=== PATIENT | male | born 1995 | race Caucasian/White ===

== ENCOUNTER 2017-05-14 07:11 | Emergency (ER) | payer OTHER ==
[2017-05-14] MEDS ORDERED: Ketorolac 60 MG/2 ML SDV IM ONE (07:32)
--- NOTE | 2017-05-14 08:54 | EDM.PDOC ---
ED HPI GENERAL MEDICAL PROBLEM - General Chief Complaint: Fever Stated Complaint: FEVER Time Seen by Provider: 05/14/17 07:20 Source of Information: Reports: Patient History Limitations: Reports: No Limitations - History of Present Illness INITIAL COMMENTS - FREE TEXT/NARRATIVE: 22 y.o.w.m came to the ed because his temp was elevatet to 105.2 this am. Pt took tylenol and motrin. As the patient arrived her in the ed,temp was 98.1 and pt was in his usual state of health. He mild lat neck discomfort, no trauma,. however. BP 126/79 pulse 106 Temp 36.8 RR 18 Pulse ox 99% on RA Onset Date: 05/14/17 Onset Time: 05:00 Duration: Hour(s): Location: Reports: Generalized Quality: Reports: Other (fever 105.2) Severity: Mild Improves with: Reports: Medication Worsens with: Reports: Rest Context: Reports: Sick Contact Treatments [employer]: Reports: Acetaminophen, NSAIDS - Related Data Allergies Allergy/AdvReac Type Severity Reaction Status Date / Time No Known Allergies Allergy Verified 05/14/17 07:25 Home Meds: Home Meds NK [No Known Home Meds] 05/14/17 [History] Past Medical History Cardiovascular History: Reports: Other (See Below) Other Cardiovascular History: History of hospitalization for dehydration and heat exhaustion. Social & Family History - Tobacco Use Smoking Status *Q: Never Smoker ED ROS GENERAL - Review of Systems Review Of Systems: See Below Constitutional: Reports: No Symptoms HEENT: Reports: No Symptoms Respiratory: Reports: No Symptoms Cardiovascular: Reports: No Symptoms Endocrine: Reports: No Symptoms GI/Abdominal: Reports: No Symptoms : Reports: No Symptoms Musculoskeletal: Reports: No Symptoms ED EXAM, GENERAL - Physical Exam Exam: See Below Exam Limited By: No Limitations General Appearance: Alert, WD/WN, No Apparent Distress Eye Exam: Bilateral Eye: Normal Inspection Ears: Normal External Exam Ear Exam: Bilateral Ear: Auricle Normal Nose: Normal Inspection, Normal Mucosa Throat/Mouth: Normal Inspection, Normal Lips, Normal Teeth Head: Atraumatic, Normocephalic Neck: Normal Inspection, Supple, Other (tender r lat neckm FROM, no trauma) Respiratory/Chest: No Respiratory Distress, Lungs Clear, Normal Breath Sounds, No Accessory Muscle Use Cardiovascular: Normal Peripheral Pulses, Regular Rate, Rhythm, No Edema, No JVD Peripheral Pulses: 1+: Brachial (R) GI/Abdominal: Normal Bowel Sounds, Soft, Non-Tender (Male) Exam: Deferred Rectal (Males) Exam: Deferred Back Exam: Normal Inspection, Full Range of Motion Extremities: Normal Inspection, Normal Range of Motion, Non-Tender, No Pedal Edema Neurological: Alert, Oriented, CN II-XII Intact, Normal Cognition, Normal Gait, No Motor/Sensory Deficits Psychiatric: Normal Affect, Normal Mood Skin Exam: Warm, Dry, Intact, Normal Color, No Rash Lymphatic: No Adenopathy Course - Vital Signs Text/Narrative:: 22 y.o.w.m came to the ed because his temp was elevatet to 105.2 this am. Pt took tylenol and motrin. As the patient arrived her in the ed,temp was 98.1 and pt was in his usual state of health. He mild lat neck discomfort, no trauma,. however. BP 126/79 pulse 106 Temp 36.8 RR 18 Pulse ox 99% on RA PE: Well appearing 22 y.o.w.m NAD Impression: Viral syndrome Tx: none in the ed Plan:D/C with instructions Last Recorded V/S: Last Vital Signs Temp 36.6 C 05/14/17 08:55 Pulse 98 05/14/17 08:55 Resp 18 05/14/17 08:55 BP 129/72 05/14/17 07:20 Pulse Ox 100 05/14/17 08:55 - Orders/Labs/Meds Labs: Laboratory Tests 05/14/17 05/14/17 05/14/17 Range/Units 07:44 07:44 08:20 WBC 3.4 L (4.5-12.0) X10-3/uL RBC 4.98 (4.30-5.75) x10(6)uL Hgb 14.7 (11.5-15.5) g/dL Hct 43.3 (30.0-51.3) % MCV 86.9 (80-96) fL MCH 29.4 (27.7-33.6) pg MCHC 33.9 (32.2-35.4) g/dL RDW 12.2 (11.5-15.5) % Plt Count 185 (125-369) X10(3)uL MPV 8.2 (7.4-10.4) fL Add Manual Diff Yes Neutrophils % (Manual) 52 (46-82) % Lymphocytes % (Manual) 30 (13-37) % Monocytes % (Manual) 15 H (4-12) % Eosinophils % (Manual) 3 (0-5) % Sodium 139 (135-145) mmol/L Potassium 3.7 (3.5-5.3) mmol/L Chloride 102 (100-110) mmol/L Carbon Dioxide 29 (21-32) mmol/L BUN 13 (7-18) mg/dL Creatinine 1.1 (0.70-1.30) mg/dL Est Cr Clr Drug Dosing 120.27 mL/min Estimated GFR (MDRD) > 60 (>60) BUN/Creatinine Ratio 11.8 (9-20) Glucose 144 H (80-116) mg/dL Calcium 9.0 (8.6-10.2) mg/dL Urine Color Yellow (YELLOW) Urine Appearance Clear (CLEAR) Urine pH 6.0 (5.0-6.5) Ur Specific [place] 1.020 (1.010-1.025) Urine Protein Negative (NEGATIVE) mg/dL Urine Glucose (UA) Normal (NEGATIVE) mg/dL Urine Ketones Negative (NEGATIVE) mg/dL Urine Occult Blood Negative (NEGATIVE) Urine Nitrite Negative (NEGATIVE) Urine Bilirubin Negative (NEGATIVE) Urine Urobilinogen Normal (NEGATIVE) mg/dL Ur Leukocyte Esterase Negative (NEGATIVE) Urine WBC 0-5 (0) Ur Squamous Epith Cells Few H (NS,R,O) Urine Bacteria Few H (NS) Meds: Medications Discontinued Medications Generic Name Dose Route Start Last Admin Trade Name Addy PRN Reason Stop Dose Admin Ketorolac Tromethamine 60 mg 05/14/17 07:32 05/14/17 07:50 Toradol IM 05/14/17 07:33 60 mg ONETIME ONE Administration Departure - Departure Time of Disposition: 08:52 Disposition: Home, Self-Care 01 Condition: Good Clinical Impression: Temperature elevation - Discharge Information Referrals: PCP,None [Primary Care Provider] - Forms: ED Department Discharge Additional Instructions: Please take motrin and Tylenol for pain and temperature, please follow up, come back if your symptoms get worse acutely
== END 2017-05-14 09:00 | disposition home or self-care (01) ==
LOC: FB.ED 07:11
DX: B34.9 Viral infection, unspecified (principal)
CPT/HCPCS: 36415; 80048; 81001; 85025; 96372; 99283; J1885

== ENCOUNTER 2018-06-27 15:56 | Emergency (ER) | payer SELFPAY ==
--- NOTE | 2018-06-27 16:18 | EDM.PDOCBH ---
ED HPI GENERAL MEDICAL PROBLEM - General Chief Complaint: Behavioral/Psych Stated Complaint: MENTAL HEALTH Time Seen by Provider: 06/27/18 15:56 Source of Information: Reports: Patient, Other ( personel) History Limitations: Reports: No Limitations - History of Present Illness INITIAL COMMENTS - FREE TEXT/NARRATIVE: 23 y.o.w.m with a H/O depression, takes Lexapro and Wellbutrin, currently [facility] [employer] one weekend a months, was brought to the ed by his model and pattern supervisor because the pt told his model and pattern supervisor, he, the pt has suicidal thoughts. Today, while the pt was in the fisher trap's office, he stormed out and went into the commander's officer, telling him, he want to kill himself. The pt was brought to the ED by his supervisors right away. As per model and pattern supervisor, pt mentioned twice about a plan how to kill himself 1) [place] a [place] 2) Taking some kin of poison. Pt stated he talked about plans, but did not act on them. Pt denied any physical issues. No CP, No SOB, no N/V/D or any other acute med issues. BP 122/87 RR 18 Pulse ox 99% on RA Pulse 95 Temp 36.8 Onset Date: 06/24/18 Onset Time: 09:00 Duration: Day(s):, Intermittent Location: Reports: Generalized Quality: Reports: Same as Previous Episode, Other (suicidal ideation with a plan ) Improves with: Reports: Medication Worsens with: Reports: Other (stress ?) Context: Reports: Other (H/O depression) Associated Symptoms: Reports: No Other Symptoms - Related Data Allergies Allergy/AdvReac Type Severity Reaction Status Date / Time No Known Allergies Allergy Verified 06/27/18 16:01 Home Meds: Home Meds Escitalopram [Lexapro] 30 mg PO DAILY 06/27/18 [History] buPROPion HCl [Wellbutrin Xl] 300 mg DAILY 06/27/18 [History] Past Medical History Psychiatric History: Reports: Anxiety, Depression - Past Surgical History HEENT Surgical History: Reports: Oral Surgery Social & Family History - Family History Family Medical History: Noncontributory - Tobacco Use Smoking Status *Q: Never Smoker - Caffeine Use Caffeine Use: Reports: Coffee, Energy Drinks - Recreational Drug Use Recreational Drug Use: No ED ROS GENERAL - Review of Systems Review Of Systems: See Below Constitutional: Reports: No Symptoms HEENT: Reports: No Symptoms Respiratory: Reports: No Symptoms Cardiovascular: Reports: No Symptoms Endocrine: Reports: No Symptoms GI/Abdominal: Reports: No Symptoms : Reports: No Symptoms Musculoskeletal: Reports: No Symptoms Skin: Reports: No Symptoms Neurological: Reports: No Symptoms Psychiatric: Reports: Depression, Suicidal Ideation Hematologic/Lymphatic: Reports: No Symptoms Immunologic: Reports: No Symptoms ED EXAM, BEHAVIORAL HEALTH - Physical Exam Exam: See Below Exam Limited By: No Limitations General Appearance: Alert, WD/WN, Mild Distress Eye Exam: Bilateral Eye: Normal Inspection Ears: Normal External Exam Nose: Normal Inspection Throat/Mouth: Normal Inspection, Normal Lips, Normal Teeth, Normal Gums, Normal Voice, No Airway Compromise Head: Atraumatic, Normocephalic Neck: Normal Inspection, Supple, Non-Tender, Full Range of Motion Respiratory/Chest: No Respiratory Distress, Lungs Clear, Normal Breath Sounds, Chest Non-Tender Cardiovascular: Normal Peripheral Pulses, Regular Rate, Rhythm, No Edema, No Gallop, No JVD, No Murmur, No Rub GI/Abdominal: Normal Bowel Sounds, Soft, Non-Tender, No Organomegaly, Pelvis Stable (Male) Exam: Deferred Rectal (Males) Exam: Deferred Back Exam: Normal Inspection, Full Range of Motion Extremities: Normal Inspection, Normal Range of Motion, Non-Tender, Normal Capillary Refill Neurological: Alert, Normal Mood/Affect, CN II-XII Intact, Normal Cognition, No Motor/Sensory Deficits, Oriented x 3 Psychiatric: Alert, Normal Affect, Normal Cognition, Oriented, Depressed Mood Skin Exam: Warm, Dry, Intact, Normal color, No rash COURSE, BEHAVIORAL HEALTH COMP - Course Vital Signs: Last Vital Signs Temp 36.7 C 06/27/18 15:57 Pulse 92 06/27/18 15:57 Resp 18 06/27/18 15:57 BP 122/87 06/27/18 15:57 Pulse Ox 99 06/27/18 15:57 23 y.o.w.m with a H/O depression, takes Lexapro and Wellbutrin, currently [facility] [employer] one weekend a months, was brought to the ed by his model and pattern supervisor because the pt told his model and pattern supervisor, he, the pt has suicidal thoughts. Today, while the pt was in the [employer]'s office, he stormed out and went into the commander's officer, telling him, he want to kill himself. The pt was brought to the ED by his supervisors right away. As per model and pattern supervisor, pt mentioned twice about a plan how to kill himself 1) driving with his truck in a river 2) Taking some kin of poison. Pt stated he talked about plans, but did not act on them. Pt denied any physical issues. No CP, No SOB, no N/V/D denied ETOH/Drug use. Denied any other acute med issues. BP 122/87 RR 18 Pulse ox 99% on RA Pulse 95 Temp 36.8 PE: WNWD W M with a depressed mood H/O suicidal ideation Labs: Not indicated Impression: Suicidal ideation Tx: Tele Psych consult Reexam: Pt was doing fine here in the ED, truthful, straight foreword, not appearing in any way a harm to himself 5.02 pm Consultation with Tele Psych: Gave HPI to Bety Crespo at Tele Psych 5.46 pm Consultation: Bety Crespo for Tele Psych called back: truthful, straight foreword, not appearing in any way a harm to himself, no Labs are indicated. Plan: D/C with instructions with his [employer] supervisors Departure - Departure Time of Disposition: 17:56 Disposition: Home, Self-Care 01 Condition: Good Clinical Impression: Depression, History of suicidal ideation - Discharge Information Referrals: PCP,None [Primary Care Provider] - Forms: ED Department Discharge Additional Instructions: Please f/u with your Psychiatrist to reevaluate your medications, please come back if your symptoms get worse acutely.
== END 2018-06-27 18:17 | disposition home or self-care (01) ==
LOC: MERGE 15:56 → FB.ED 15:56
DX: F32.9 Major depressive disorder, single episode, unspecified (principal); F41.9 Anxiety disorder, unspecified; Z79.899 Other long term (current) drug therapy
CPT/HCPCS: 99282